=== PATIENT | male | born 1995 | race Caucasian/White ===

== ENCOUNTER 2019-04-11 18:28 | Emergency (ER) | payer OTHER ==
[2019-04-11] MEDS ORDERED: HYDROCODONE/ACETAMINOPHEN 5-325 MG TABLET PO ONE (18:57)
--- NOTE | 2019-04-11 19:01 | ER Document Report ---
HPI - HPI Patient complains to provider of: Thumb injury Time Seen by Provider: 04/11/19 18:55 Onset: This afternoon Onset/Duration: Sudden Quality of pain: Achy Pain Level: 4 Context: Patient was holding a dog collar and the dog twisted injuring his right thumb. Patient is right-hand dominant. Patient with tenderness with range of motion. Patient states that the palm initially appeared deformed and he pulled on it to straighten it. Patient thinks that his joint may have been initially dislocated. Associated Symptoms: Other - Right thumb injury Exacerbated by: Movement Relieved by: Denies Similar symptoms previously: No Recently seen / treated by doctor: No - ROS ROS below otherwise negative: Yes Systems Reviewed and Negative: Yes All other systems reviewed and negative - GASTROINTESTINAL Gastrointestinal: DENIES: Nausea - MUSCULOSKELETAL Musculoskeletal: REPORTS: Extremity pain - R hand/thumb - DERM Skin Color: Normal Past Medical History - General Information source: Patient - Social History Smoking Status: Never Smoker Chew tobacco use (# tins/day): Yes Frequency of alcohol use: Occasional Drug Abuse: None Occupation: Active duty Lives with: Spouse/Significant other Family History: Reviewed & Not Pertinent Patient has suicidal ideation: No Patient has homicidal ideation: No - Medical History Medical History: Negative Surgical Hx: Negative Vertical Provider Document - CONSTITUTIONAL Agree With Documented VS: Yes Exam Limitations: No Limitations General Appearance: WD/WN, No Apparent Distress - HEENT HEENT: Atraumatic, Normocephalic - NECK Neck: Normal Inspection - RESPIRATORY Respiratory: No Respiratory Distress - CARDIOVASCULAR Pulses: Normal: Radial - MUSCULOSKELETAL/EXTREMETIES Musculoskeletal/Extremeties: MAEW, Tender - Right thumb tenderness to the first metacarpal and CMC joint, no obvious deformity, normal strength against resistance, No Edema. negative: Eccymosis - NEURO Level of Consciousness: Awake, Alert, Appropriate Motor/Sensory: No Motor Deficit - DERM Integumentary: Warm, Dry, No Rash Course - Re-evaluation Re-evalutation: 04/11/19 20:28 Attempted reduction of right thumb subluxation by holding gentle traction to the proximal phalanx and metacarpal. Patient with improved appearance of the joint. Will immobilize and refer to orthopedics for further management. Patient advised that he will need to see his primary doctor for referral. - Vital Signs Vital signs: Temp Pulse Resp BP Pulse Ox 98.1 F 75 20 134/74 H 97 04/11/19 18:32 04/11/19 18:32 04/11/19 18:32 04/11/19 18:32 04/11/19 18:32 - Diagnostic Test Radiology reviewed: Image reviewed, Reports reviewed Procedures - Immobilization Right Thumb Pre-Proc Neuro Vasc Exam: Normal Immobilizer type: Thumb spica Performed by: PCT Post-Proc Neuro Vasc Exam: Normal Alignment checked and good: Yes Discharge - Discharge Clinical Impression: Sprain of right thumb Qualifiers: Encounter type: initial encounter Sprain of finger site: unspecified site Qualified Code(s): S63.601A - Unspecified sprain of right thumb, initial encounter Condition: Stable Disposition: HOME, SELF-CARE Instructions: Sprained Thumb ([facility]), Temporary Splint ([facility]) Additional Instructions: Return immediately for any new or worsening symptoms Followup with your primary care provider, call tomorrow to make a followup appointment Follow-up with hand surgeon for further evaluation, call tomorrow for an appointment Prescriptions: Naproxen [Naprosyn 250 Nmg Tablet] 1 tab PO BID #14 tablet Referrals: BORIS WATKINS DO [ACTIVE STAFF] - Follow up as needed [facility] [Provider Group] - Follow up tomorrow
--- NOTE | 2019-04-11 20:09 | RADIOLOGY REPORT (SQ) ---
EXAM DESCRIPTION: FINGER RIGHT COMPLETED DATE/TIME: 04/11/2019 7:08 pm REASON FOR STUDY: thumb injury, caught in dog collar, dog twisted COMPARISON: None. NUMBER OF VIEWS: Three views. TECHNIQUE: AP view of the right hand and AP and lateral images acquired of the right thumb. LIMITATIONS: None. FINDINGS: MINERALIZATION: Normal. BONES: There is no acute fracture. There is volar subluxation at the 1st metacarpophalangeal joint. There is a remote deformity of the 5th metacarpal. SOFT TISSUES: No soft tissue swelling. No radiopaque foreign body. IMPRESSION: Volar subluxation at the 1st MCP joint. No radiographic evidence for acute fracture. COMMENT: SITE OF TRAUMA/COMPLAINT MARKED/STAMP COMPLETED: NO. TECHNICAL DOCUMENTATION: JOB ID: [id number] [employer]- All Rights Reserved Reading location - IP/workstation name: [email or web address]
[2019-04-11 20:44] VITALS: BP 132/76
== END 2019-04-11 20:45 | disposition home or self-care (01) ==
LOC: ER 18:28
DX: S63.601A Unspecified sprain of right thumb, initial encounter (principal); X50.0XXA Overexertion from strenuous movement or load, initial encounter
CPT/HCPCS: 99283